=== PATIENT | male | born 1950 | race Caucasian/White ===

== ENCOUNTER 2020-01-11 15:58 | Inpatient (IN) ==
[2020-01-11] MEDS ORDERED: Nitroglycerin 0.4 MG TAB.SUBL SL ONE (16:23)
[2020-01-11 16:34] LABS: Basophils % 0.6 %; Eosinophils # 0.2 K/mcL (0.0-0.6); Eosinophils % 3.6 %; Hematocrit 44.6 % (37.5-50.1); Hemoglobin 14.1 g/dL (12.9-16.9); INR 1.1; Immature Granulocytes % 0.4 % (0-4); Lymphocytes # 1.3 K/mcL (0.6-4.6); Lymphocytes % 19.2 %; Mean Corpuscular HGB Conc 31.6 g/dL (31.6-35.5); Mean Corpuscular Volume 94.9 fL (83.0-100.0); Mean Platelet Volume 11.4 fL (9.4-12.4); Monocytes # 0.6 K/mcL (0.0-1.3); Monocytes % 8.8 %; Neutrophils # 4.5 K/mcL (1.6-8.9); Platelet Count 203 K/mcL (140-400); Prothrombin Time 12.5 Seconds (9.4-12.1); Red Cell Distribution Width 12.6 % (11.5-14.5); Segmented Neutrophils % 67.4 %; White Blood Count 6.7 K/mcL (4.3-11.1)
[2020-01-11 16:36] LABS: Activated Partial Thrombo Time 35.7 Seconds (26.0-36.0)
[2020-01-11 17:01] LABS: BUN/Creatinine Ratio 15 (6-26); Blood Urea Nitrogen 14 mg/dL (8-23); Calcium 9.5 mg/dL (8.6-10.3); Carbon Dioxide 25 mEq/L (23-29); Chloride 106 mEq/L (98-107); Glucose 164 mg/dL (70-105); Osmolality,Calculated 290 (280-300); Potassium 4.6 mEq/L (3.5-5.1); Sodium 138 mEq/L (136-145); Troponin I 1.55 ng/mL (< 0.04); eGFR For African Americans > 60 (> 60); eGFR For Non-African Americans > 60 (> 60)
[2020-01-11] MEDS ORDERED: *HR* Heparin 5,000 UNIT/ML VIAL IVP PRN ×2 (17:35)
[2020-01-11] MEDS ORDERED: *HR* Heparin 5,000 UNIT/ML VIAL IVP ONE (17:35)
[2020-01-11] MEDS ORDERED: Naloxone 0.4 MG/ML INJ IVP PRN (17:52)
[2020-01-11] MEDS ORDERED: *HR* HYDROcodone/Acet 5/325 mg TABLET PO PRN (17:52)
[2020-01-11] MEDS ORDERED: Nitroglycerin 0.4 MG TAB.SUBL SL PRN (17:54)
[2020-01-11] MEDS ORDERED: Perflutren Lipid Microsphere 1.3 ML in 0.9 % Sodium Chloride 8.7 ML IVP PRN (17:56)
[2020-01-11] MEDS ORDERED: *HR* Dextrose 50 % in Water (Vial) 50 ML VIAL IVP PRN (17:57)
[2020-01-11] MEDS ORDERED: D5% in Water 1,000 ML IVC PRN (17:57)
[2020-01-11] MEDS ORDERED: Dextrose Gel 15 GM/37.5 ML TUBE PO PRN ×2 (17:57)
[2020-01-11] MEDS ORDERED: Aspirin Enteric Coated 325 MG Tablet PO SCH (18:30)
[2020-01-11] MEDS: Heparin 25,000UNIT/250ML 1/2NS 25,000 UNIT/250 ML IV.SOLN IVC SCH (18:55)
[2020-01-11] MEDS: Furosemide 20 MG/2 ML VIAL IVP SCH (21:42)
[2020-01-11] MEDS: Metoprolol XL (24 HR) Succ 25 MG TAB.ER.24H PO SCH (21:42)
[2020-01-11] MEDS: Insulin DETEMIR 100 UNIT/ML X5UNITS SQ SCH (23:14)
[2020-01-12 01:32] LABS: Basophils # 0.1 K/mcL (0.0-0.2); Eosinophils # 0.3 K/mcL (0.0-0.6); Eosinophils % 4.9 %; Hematocrit 42.9 % (37.5-50.1); Hemoglobin 13.8 g/dL (12.9-16.9); Immature Granulocytes % 0.2 % (0-4); Lymphocytes # 1.7 K/mcL (0.6-4.6); Lymphocytes % 27.7 %; Mean Corpuscular HGB Conc 32.2 g/dL (31.6-35.5); Mean Corpuscular Hemoglobin 30.4 pg (28.0-33.3); Mean Corpuscular Volume 94.5 fL (83.0-100.0); Mean Platelet Volume 11.6 fL (9.4-12.4); Monocytes # 0.6 K/mcL (0.0-1.3); Monocytes % 10.5 %; Neutrophils # 3.4 K/mcL (1.6-8.9); Platelet Count 192 K/mcL (140-400); Red Blood Count 4.54 M/mcL (4.19-5.50); Red Cell Distribution Width 12.6 % (11.5-14.5); Segmented Neutrophils % 55.7 %; White Blood Count 6.1 K/mcL (4.3-11.1)
[2020-01-12 02:06] LABS: Alanine Aminotransferase 22 Units/L (7-52); Albumin 4.1 g/dL (3.5-5.7); Albumin/Globulin Ratio 1.7 (1.1-2.2); Alkaline Phosphatase 72 Units/L (34-104); Aspartate Amino Transferase 25 Units/L (13-39); BUN/Creatinine Ratio 14 (6-26); Bilirubin,Total 0.8 mg/dL (0.3-1.0); Blood Urea Nitrogen 14 mg/dL (8-23); Calcium 9.1 mg/dL (8.6-10.3); Carbon Dioxide 26 mEq/L (23-29); Chloride 104 mEq/L (98-107); Chol/HDL Ratio 4.1 (0-4.9); Cholesterol 147 mg/dL (< 200); Globulin 2.4 g/dL (2.4-3.5); Glucose 173 mg/dL (70-105); HDL Cholesterol 36 mg/dL (40-59); LDL Cholesterol,Calculated 83 mg/dL (< 100); Osmolality,Calculated 293 (280-300); Phosphorous 3.4 mg/dL (2.7-4.5); Potassium 3.8 mEq/L (3.5-5.1); Sodium 139 mEq/L (136-145); Total Protein 6.5 g/dL (6.4-8.9); Triglycerides 140 mg/dL (< 150); Troponin I 2.41 ng/mL (< 0.04); eGFR For African Americans > 60 (> 60); eGFR For Non-African Americans > 60 (> 60)
[2020-01-12 04:01] LABS: Estimated Average Glucose 169 mg/dl
[2020-01-12] MEDS: Insulin LISPRO 300 UNITS/3 ML VIAL SQ SCH ×3 (07:21→16:44)
[2020-01-12] MEDS: Furosemide 20 MG/2 ML VIAL IVP SCH ×2 (07:34→20:00)
[2020-01-12] MEDS: Aspirin Enteric Coated 81 MG Tablet PO SCH (07:34)
[2020-01-12] MEDS: Metoprolol XL (24 HR) Succ 25 MG TAB.ER.24H PO SCH (07:34)
[2020-01-12] MEDS ORDERED: Heparin 1,000 UNITS/500 mL 500 ML ONE (10:23)
[2020-01-12] MEDS ORDERED: *HR* Midazolam HCl 2 MG/2 ML VIAL ONE (10:23)
[2020-01-12] MEDS ORDERED: *HR* FentaNYL (PF) 100 MCG/2 ML VIAL ONE (10:23)
[2020-01-12] MEDS ORDERED: 0.9 % Sodium Chloride 1,000 ML ONE (10:23)
[2020-01-12] MEDS ORDERED: *HR* Heparin 10,000 UNIT/10 ML VIAL ONE (10:24)
[2020-01-12] MEDS ORDERED: Nitroglycerin 1,000 MCG/10 ML VIAL IV ONE (10:24)
[2020-01-12] MEDS ORDERED: ISOVUE-370 200 ML INFUS..BTL ONE (10:24)
[2020-01-12] MEDS: Chlorhexidine Rinse 15 ML MOUTHWASH MM SCH (20:00)
[2020-01-13] MEDS: Heparin 25,000UNIT/250ML 1/2NS 25,000 UNIT/250 ML IV.SOLN IVC SCH ×2 (00:05→09:31)
[2020-01-13] MEDS: Insulin DETEMIR 100 UNIT/ML X5UNITS SQ SCH ×2 (01:08→19:22)
[2020-01-13] MEDS ORDERED: Dextrose 50 % in Water (Vial) 30 ML, Sodium Bicarbonate 20 MEQ, Lidocaine 1% 5 ML, Insu... TH ONE ×3 (02:00)
[2020-01-13] MEDS ORDERED: Dextrose 50 % in Water (Vial) 30 ML, Sodium Bicarbonate 20 MEQ, Potassium Chloride 15 M... TH ONE (02:00)
[2020-01-13] MEDS ORDERED: Insulin Human Regular 100 UNIT in 0.9 % Sodium Chloride 100 ML IV PRN (02:00)
[2020-01-13] MEDS ORDERED: Heparin 15,000 UNIT in 0.9 % Sodium Chloride 500 ML IV ONE (02:00)
[2020-01-13] MEDS ORDERED: Norepinephrine 4 MG in 0.9 % Sodium Chloride 250 ML IVC PRN (02:00)
[2020-01-13 02:08] LABS: Basophils # 0.1 K/mcL (0.0-0.2); Basophils % 0.9 %; Eosinophils # 0.3 K/mcL (0.0-0.6); Eosinophils % 3.9 %; Hematocrit 42.8 % (37.5-50.1); Immature Granulocytes % 0.3 % (0-4); Lymphocytes # 1.4 K/mcL (0.6-4.6); Lymphocytes % 21.5 %; Mean Corpuscular HGB Conc 32.7 g/dL (31.6-35.5); Mean Corpuscular Volume 94.9 fL (83.0-100.0); Mean Platelet Volume 11.4 fL (9.4-12.4); Monocytes # 0.6 K/mcL (0.0-1.3); Neutrophils # 4.1 K/mcL (1.6-8.9); Platelet Count 179 K/mcL (140-400); Red Blood Count 4.51 M/mcL (4.19-5.50); Red Cell Distribution Width 12.3 % (11.5-14.5); Segmented Neutrophils % 63.4 %; White Blood Count 6.4 K/mcL (4.3-11.1)
[2020-01-13 02:24] LABS: BUN/Creatinine Ratio 18 (6-26); Blood Urea Nitrogen 18 mg/dL (8-23); Calcium 9.5 mg/dL (8.6-10.3); Carbon Dioxide 26 mEq/L (23-29); Chloride 102 mEq/L (98-107); Glucose 154 mg/dL (70-105); Osmolality,Calculated 293 (280-300); Potassium 3.8 mEq/L (3.5-5.1); Sodium 139 mEq/L (136-145); eGFR For African Americans > 60 (> 60); eGFR For Non-African Americans > 60 (> 60)
[2020-01-13] MEDS: Chlorhexidine Rinse 15 ML MOUTHWASH MM SCH ×2 (05:13→19:22)
[2020-01-13] MEDS: Metoprolol XL (24 HR) Succ 25 MG TAB.ER.24H PO SCH (05:13)
[2020-01-13] MEDS ORDERED: CeFAZolin Syr 2,000MG/20 ML 2,000 MG/20 ML SYRINGE IVPB ONE (06:00)
[2020-01-13] MEDS ORDERED: NiCARdipine 2.5 MG/10 ML Syringe IVPB ONE (06:38)
[2020-01-13] MEDS ORDERED: *HR* FentaNYL (PF) 1,000 MCG/20 ML VIAL ONE (06:45)
[2020-01-13] MEDS ORDERED: *HR* Midazolam HCl 5 MG/5 ML VIAL IVP ONE (06:45)
[2020-01-13] MEDS ORDERED: *HR* Rocuronium Bromide 50 MG/5 ML VIAL ONE ×2 (06:47→09:43)
[2020-01-13] MEDS ORDERED: *HR* PHENYLEPHRINE 1,000 MCG/10 ML SYRINGE IVP ONE (06:47)
[2020-01-13] MEDS ORDERED: Tranexamic Acid 1,000 MG/10 ML VIAL ONE ×2 (06:48→08:51)
[2020-01-13] MEDS ORDERED: Calcium Gluconate 1,000 MG/10 ML VIAL ONE (06:48)
[2020-01-13] MEDS ORDERED: Protamine Sulfate 250 MG/25 ML VIAL IVP ONE (06:48)
[2020-01-13] MEDS ORDERED: *HR* Etomidate 20 MG/10 ML AMPUL IVP ONE (06:50)
[2020-01-13] MEDS ORDERED: Famotidine 20 MG/2 ML VIAL ONE (06:50)
[2020-01-13] MEDS: Insulin LISPRO 300 UNITS/3 ML VIAL SQ SCH ×3 (07:04→13:50)
[2020-01-13] MEDS: Furosemide 20 MG/2 ML VIAL IVP SCH ×2 (07:05→19:24)
[2020-01-13] MEDS: Aspirin Enteric Coated 81 MG Tablet PO SCH (07:05)
[2020-01-13 08:22] LABS: ABG Base Excess 1 mEq/L (-2 to 3); ABG Chloride 101 mEq/L (98-107); ABG Glucose 189 mg/dL (60-95); ABG HCO3 27 mEq/L (21-27); ABG Ionized Calcium 1.14 mmol/L (1.15-1.35); ABG Oxygen Saturation 100 % (95-98); ABG PCO2 43 mmHg (35-45); ABG PO2 198 mmHg (85-104); ABG TCO2 28 mEq/L (20-26)
[2020-01-13] MEDS ORDERED: Albumin Human 5% 50.0 GM/1,000 ML IV.SOLN ONE (08:48)
[2020-01-13 09:16] LABS: ABG Base Excess 0 mEq/L (-2 to 3); ABG Chloride 102 mEq/L (98-107); ABG Glucose 209 mg/dL (60-95); ABG HCO3 25 mEq/L (21-27); ABG Ionized Calcium 1.11 mmol/L (1.15-1.35); ABG Oxygen Saturation 97 % (95-98); ABG PCO2 42 mmHg (35-45); ABG PH 7.38 pH Units (7.32-7.45); ABG PO2 91 mmHg (85-104); ABG TCO2 26 mEq/L (20-26)
[2020-01-13] MEDS ORDERED: Amiodarone Premix 360 MG/200 ML BAG IVC ONE ×2 (09:23→11:33)
[2020-01-13] MEDS ORDERED: *HR* Amiodarone 150 MG/3 ML VIAL IVPB ONE (09:23)
[2020-01-13 10:09] LABS: ABG Base Excess 1 mEq/L (-2 to 3); ABG Chloride 98 mEq/L (98-107); ABG Glucose 243 mg/dL (60-95); ABG HCO3 25 mEq/L (21-27); ABG Ionized Calcium 1.07 mmol/L (1.15-1.35); ABG Oxygen Saturation 100 % (95-98); ABG PCO2 37 mmHg (35-45); ABG PH 7.44 pH Units (7.32-7.45); ABG PO2 395 mmHg (85-104); ABG TCO2 26 mEq/L (20-26)
[2020-01-13 10:34] LABS: ABG Base Excess 1 mEq/L (-2 to 3); ABG Chloride 98 mEq/L (98-107); ABG Glucose 198 mg/dL (60-95); ABG HCO3 25 mEq/L (21-27); ABG Ionized Calcium 1.08 mmol/L (1.15-1.35); ABG Oxygen Saturation 100 % (95-98); ABG PCO2 36 mmHg (35-45); ABG PH 7.46 pH Units (7.32-7.45); ABG PO2 331 mmHg (85-104); ABG TCO2 26 mEq/L (20-26)
[2020-01-13 11:05] LABS: ABG Base Excess 1 mEq/L (-2 to 3); ABG Chloride 96 mEq/L (98-107); ABG Glucose 154 mg/dL (60-95); ABG HCO3 26 mEq/L (21-27); ABG Ionized Calcium 1.24 mmol/L (1.15-1.35); ABG Oxygen Saturation 100 % (95-98); ABG PCO2 38 mmHg (35-45); ABG PH 7.43 pH Units (7.32-7.45); ABG PO2 532 mmHg (85-104); ABG TCO2 27 mEq/L (20-26)
[2020-01-13] MEDS ORDERED: Acetaminophen 650 MG RECTAL SUPP RC PRN (11:33)
[2020-01-13] MEDS ORDERED: Calcium Gluconate 1gm/50mL 1 GM/50 ML BAG IVPB PRN (11:33)
[2020-01-13] MEDS ORDERED: Potassium Chloride 40 MEQ/200 ML BAG IVPB PRN (11:33)
[2020-01-13] MEDS ORDERED: Ondansetron 4 MG/2 ML VIAL IVP PRN (11:33)
[2020-01-13] MEDS ORDERED: Sennosides 8.6 MG TABLET PO PRN (11:33)
[2020-01-13] MEDS ORDERED: Acetaminophen 325 MG TABLET PO PRN (11:33)
[2020-01-13] MEDS ORDERED: Insulin Regular, Human 100 UNIT/ML IV PRN (11:33)
[2020-01-13] MEDS ORDERED: *HR* Dextrose 50 % in Water (Vial) 50 ML VIAL IVP PRN (11:33)
[2020-01-13 11:36] LABS: ABG Base Excess 0 mEq/L (-2 to 3); ABG Chloride 97 mEq/L (98-107); ABG Glucose 141 mg/dL (60-95); ABG HCO3 25 mEq/L (21-27); ABG Ionized Calcium 1.39 mmol/L (1.15-1.35); ABG Oxygen Saturation 98 % (95-98); ABG PCO2 42 mmHg (35-45); ABG PH 7.39 pH Units (7.32-7.45); ABG PO2 105 mmHg (85-104); ABG TCO2 27 mEq/L (20-26)
[2020-01-13] MEDS ORDERED: Norepinephrine 4 MG/254 ML IV.SOLN IVC SCH (11:45)
[2020-01-13 12:32] LABS: ABG Base Excess 0 mEq/L (-2 to 3); ABG HCO3 25 mEq/L (21-27); ABG Oxygen Saturation 99 % (95-98); ABG PCO2 43 mmHg (35-45); ABG PH 7.38 pH Units (7.32-7.45); ABG PO2 119 mmHg (85-104); ABG TCO2 27 mEq/L (20-26); Blood Gas Modality AF; Blood Gas VT 650 cc
[2020-01-13 12:34] LABS: Basophils # 0.1 K/mcL (0.0-0.2); Basophils % 0.4 %; Eosinophils # 0.2 K/mcL (0.0-0.6); Eosinophils % 1.2 %; Hematocrit 36.1 % (37.5-50.1); Immature Granulocytes % 0.8 % (0-4); Lymphocytes # 1.2 K/mcL (0.6-4.6); Lymphocytes % 8.5 %; Mean Corpuscular HGB Conc 33.2 g/dL (31.6-35.5); Mean Corpuscular Hemoglobin 31.1 pg (28.0-33.3); Mean Corpuscular Volume 93.5 fL (83.0-100.0); Mean Platelet Volume 10.9 fL (9.4-12.4); Monocytes % 8.6 %; Neutrophils # 11.7 K/mcL (1.6-8.9); Platelet Count 135 K/mcL (140-400); Red Blood Count 3.86 M/mcL (4.19-5.50); Red Cell Distribution Width 12.5 % (11.5-14.5); Segmented Neutrophils % 80.5 %
[2020-01-13 12:37] LABS: Monocytes # 1.3 K/mcL (0.0-1.3); White Blood Count 14.5 K/mcL (4.3-11.1)
[2020-01-13 12:42] LABS: INR 1.4; Prothrombin Time 15.6 Seconds (9.4-12.1)
[2020-01-13 12:44] LABS: Activated Partial Thrombo Time 32.6 Seconds (26.0-36.0)
[2020-01-13] MEDS: 0.9 % Sodium Chloride w KCl 20 MEQ/1,000 ML MLS IVC SCH (12:49)
[2020-01-13] MEDS: Metoclopramide 10 MG/2 ML VIAL IVP SCH ×2 (12:49→15:08)
[2020-01-13 12:50] LABS: BUN/Creatinine Ratio 16 (6-26); Blood Urea Nitrogen 16 mg/dL (8-23); Calcium 9.3 mg/dL (8.6-10.3); Carbon Dioxide 26 mEq/L (23-29); Chloride 104 mEq/L (98-107); Glucose 126 mg/dL (70-105); Osmolality,Calculated 287 (280-300); Potassium 4.1 mEq/L (3.5-5.1); Sodium 137 mEq/L (136-145); eGFR For African Americans > 60 (> 60); eGFR For Non-African Americans > 60 (> 60)
[2020-01-13] MEDS: Albumin Human 5% 12.5 GM/250 ML IV.SOLN IVPB PRN ×2 (12:51→13:45)
[2020-01-13] MEDS: Amiodarone Premix 360 MG/200 ML BAG IVC SCH ×2 (12:52→17:47)
[2020-01-13] MEDS: niCARdipine 20 MG/200 ML MLS IVC SCH ×4 (12:53→22:09)
[2020-01-13] MEDS: Insulin Human Regular 100 UNIT in 0.9 % Sodium Chloride 100 ML IVC SCH ×2 (13:20→14:15)
[2020-01-13] MEDS: Pantoprazole 40 MG VIAL IVP SCH (13:40)
[2020-01-13] MEDS: *HR* FentaNYL (PF) 100 MCG/2 ML VIAL IVP PRN ×3 (13:40→20:35)
[2020-01-13] MEDS ORDERED: Tranexamic Acid 1,000 MG/10 ML VIAL IR ONE (14:12)
[2020-01-13] MEDS ORDERED: Lidocaine 2% Syringe 100 MG/5 ML IVP ONE (14:12)
[2020-01-13] MEDS ORDERED: *HR* Heparin 10,000 UNIT/10 ML VIAL IR ONE (14:12)
[2020-01-13] MEDS ORDERED: *HR* Phenylephrine 10 MG/ML VIAL IVC ONE (14:12)
[2020-01-13] MEDS ORDERED: *HR* Magnesium Sulfate 2 GM/50 ML PIGGYBACK IVPB ONE (14:12)
[2020-01-13] MEDS ORDERED: Albumin Human 25% 25 GM/100 ML IV.SOLN IVPB ONE (14:12)
[2020-01-13] MEDS: CeFAZolin 2 GM/120 ML BAG IVPB SCH (15:02)
[2020-01-13 17:07] LABS: ABG Base Excess 2 mEq/L (-2 to 3); ABG HCO3 28 mEq/L (21-27); ABG Oxygen Saturation 95 % (95-98); ABG PCO2 47 mmHg (35-45); ABG PH 7.38 pH Units (7.32-7.45); ABG PO2 76 mmHg (85-104); ABG TCO2 29 mEq/L (20-26); Blood Gas Modality CPAP/PS; Blood Gas Pressure Support 5 cm H2O
[2020-01-13 18:17] LABS: ABG Base Excess 1 mEq/L (-2 to 3); ABG HCO3 27 mEq/L (21-27); ABG Oxygen Saturation 95 % (95-98); ABG PCO2 47 mmHg (35-45); ABG PH 7.37 pH Units (7.32-7.45); ABG PO2 80 mmHg (85-104); ABG TCO2 29 mEq/L (20-26)
[2020-01-13] MEDS ORDERED: Furosemide 20 MG/2 ML VIAL IVP SCH (21:00)
[2020-01-14] MEDS: Metoclopramide 10 MG/2 ML VIAL IVP SCH ×5 (00:17→23:24)
[2020-01-14] MEDS: CeFAZolin 2 GM/120 ML BAG IVPB SCH (00:17)
[2020-01-14] MEDS: *HR* FentaNYL (PF) 100 MCG/2 ML VIAL IVP PRN (00:18)
[2020-01-14] MEDS: *HR* OxyCODONE/APAP 5/325 TABLET PO PRN ×4 (02:13→18:32)
[2020-01-14 04:40] LABS: Eosinophils % 0.2 %; Hemoglobin 11.3 g/dL (12.9-16.9); Monocytes % 10.4 %; Red Cell Distribution Width 12.6 % (11.5-14.5)
[2020-01-14 04:42] LABS: Basophils % 0.4 %; Hematocrit 35.4 % (37.5-50.1); Immature Granulocytes % 0.3 % (0-4); Immature Platelets 6.2 % (1.1-6.1); Lymphocytes # 1.3 K/mcL (0.6-4.6); Lymphocytes % 13.9 %; Mean Corpuscular HGB Conc 31.9 g/dL (31.6-35.5); Mean Corpuscular Volume 93.9 fL (83.0-100.0); Mean Platelet Volume 11.6 fL (9.4-12.4); Neutrophils # 6.9 K/mcL (1.6-8.9); Platelet Count 121 K/mcL (140-400); Red Blood Count 3.77 M/mcL (4.19-5.50); Segmented Neutrophils % 74.8 %; White Blood Count 9.2 K/mcL (4.3-11.1)
[2020-01-14 04:46] LABS: INR 1.3; Prothrombin Time 14.6 Seconds (9.4-12.1)
[2020-01-14 04:49] LABS: Activated Partial Thrombo Time 27.7 Seconds (26.0-36.0)
[2020-01-14 05:02] LABS: BUN/Creatinine Ratio 15 (6-26); Blood Urea Nitrogen 14 mg/dL (8-23); Calcium 8.5 mg/dL (8.6-10.3); Carbon Dioxide 24 mEq/L (23-29); Chloride 106 mEq/L (98-107); Glucose 116 mg/dL (70-105); Magnesium 1.9 mg/dL (1.6-2.6); Osmolality,Calculated 289 (280-300); Potassium 4.1 mEq/L (3.5-5.1); Sodium 139 mEq/L (136-145); eGFR For African Americans > 60 (> 60); eGFR For Non-African Americans > 60 (> 60)
[2020-01-14] MEDS: niCARdipine 20 MG/200 ML MLS IVC SCH (05:41)
[2020-01-14] MEDS: Amiodarone Premix 360 MG/200 ML BAG IVC SCH (06:10)
[2020-01-14] MEDS: Pantoprazole 40 MG VIAL IVP SCH (08:56)
[2020-01-14] MEDS: Metoprolol XL (24 HR) Succ 25 MG TAB.ER.24H PO SCH (08:56)
[2020-01-14] MEDS: Furosemide 20 MG/2 ML VIAL IVP SCH ×2 (08:56→16:02)
[2020-01-14] MEDS: Chlorhexidine Rinse 15 ML MOUTHWASH MM SCH ×2 (08:57→20:29)
[2020-01-14] MEDS: 0.9 % Sodium Chloride w KCl 20 MEQ/1,000 ML MLS IVC SCH (08:57)
[2020-01-14] MEDS ORDERED: Aspirin Enteric Coated 81 MG Tablet PO SCH (09:00)
[2020-01-14] MEDS ORDERED: *HR* Amiodarone 200 MG TABLET PO SCH (09:00)
[2020-01-14] MEDS ORDERED: *HR* Dextrose 50 % in Water (Vial) 50 ML VIAL IVP PRN ×3 (12:49)
[2020-01-14] MEDS ORDERED: D5% in Water 1,000 ML IVC PRN (12:49)
[2020-01-14] MEDS ORDERED: Dextrose Gel 15 GM/37.5 ML TUBE PO PRN ×4 (12:49)
[2020-01-14] MEDS ORDERED: Insulin Regular, Human 100 UNIT/ML IV PRN (12:49)
[2020-01-14] MEDS ORDERED: Ondansetron 4 MG/2 ML VIAL IVP PRN (12:49)
[2020-01-14] MEDS ORDERED: Naloxone 0.4 MG/ML INJ IVP PRN (12:49)
[2020-01-14] MEDS ORDERED: Nitroglycerin 0.4 MG TAB.SUBL SL PRN (12:49)
[2020-01-14] MEDS ORDERED: Acetaminophen 325 MG TABLET PO PRN (12:49)
[2020-01-14] MEDS ORDERED: Insulin Human Regular 100 UNIT in 0.9 % Sodium Chloride 100 ML IVC SCH (12:49)
[2020-01-14] MEDS ORDERED: Sennosides 8.6 MG TABLET PO PRN (12:49)
[2020-01-14] MEDS: *HR* Heparin 5,000 UNIT/ML VIAL SQ SCH ×2 (16:01→18:26)
[2020-01-14] MEDS: *HR* Glimepiride 4 MG TABLET PO SCH (16:01)
[2020-01-14] MEDS: Insulin DETEMIR 100 UNIT/ML X5UNITS SQ SCH (20:27)
[2020-01-15] MEDS: *HR* OxyCODONE/APAP 5/325 TABLET PO PRN ×4 (01:35→23:23)
[2020-01-15 04:51] LABS: Basophils % 0.5 %; Eosinophils # 0.1 K/mcL (0.0-0.6); Eosinophils % 1.1 %; Hematocrit 31.5 % (37.5-50.1); Hemoglobin 10.1 g/dL (12.9-16.9); Immature Granulocytes % 0.5 % (0-4); Lymphocytes # 1.2 K/mcL (0.6-4.6); Lymphocytes % 15.3 %; Mean Corpuscular HGB Conc 32.1 g/dL (31.6-35.5); Mean Corpuscular Hemoglobin 30.1 pg (28.0-33.3); Mean Platelet Volume 11.6 fL (9.4-12.4); Monocytes # 1.1 K/mcL (0.0-1.3); Monocytes % 13.2 %; Neutrophils # 5.6 K/mcL (1.6-8.9); Platelet Count 111 K/mcL (140-400); Red Blood Count 3.35 M/mcL (4.19-5.50); Red Cell Distribution Width 12.8 % (11.5-14.5); Segmented Neutrophils % 69.4 %; White Blood Count 8.1 K/mcL (4.3-11.1)
[2020-01-15 05:06] LABS: BUN/Creatinine Ratio 17 (6-26); Blood Urea Nitrogen 15 mg/dL (8-23); Calcium 8.3 mg/dL (8.6-10.3); Carbon Dioxide 24 mEq/L (23-29); Chloride 101 mEq/L (98-107); Glucose 141 mg/dL (70-105); Osmolality,Calculated 281 (280-300); Sodium 134 mEq/L (136-145); eGFR For African Americans > 60 (> 60); eGFR For Non-African Americans > 60 (> 60)
[2020-01-15] MEDS: Metoclopramide 10 MG/2 ML VIAL IVP SCH ×4 (06:38→23:15)
[2020-01-15] MEDS: *HR* Heparin 5,000 UNIT/ML VIAL SQ SCH ×2 (06:38→17:25)
[2020-01-15] MEDS: Aspirin Enteric Coated 81 MG Tablet PO SCH (08:29)
[2020-01-15] MEDS: lisinopriL 10 MG TABLET PO SCH (08:30)
[2020-01-15] MEDS: *HR* Glimepiride 4 MG TABLET PO SCH (08:30)
[2020-01-15] MEDS: Chlorhexidine Rinse 15 ML MOUTHWASH MM SCH ×2 (08:31→20:28)
[2020-01-15] MEDS: Furosemide 20 MG/2 ML VIAL IVP SCH ×2 (08:31→17:25)
[2020-01-15] MEDS: Pantoprazole 40 MG VIAL IVP SCH (08:31)
[2020-01-15] MEDS: Insulin DETEMIR 100 UNIT/ML X5UNITS SQ SCH (20:29)
[2020-01-16 01:26] LABS: Basophils % 0.4 %; Eosinophils # 0.2 K/mcL (0.0-0.6); Hematocrit 29.8 % (37.5-50.1); Hemoglobin 9.7 g/dL (12.9-16.9); Immature Granulocytes % 0.3 % (0-4); Lymphocytes # 1.1 K/mcL (0.6-4.6); Lymphocytes % 14.4 %; Mean Corpuscular HGB Conc 32.6 g/dL (31.6-35.5); Mean Corpuscular Hemoglobin 30.4 pg (28.0-33.3); Mean Corpuscular Volume 93.4 fL (83.0-100.0); Mean Platelet Volume 11.6 fL (9.4-12.4); Monocytes # 1.2 K/mcL (0.0-1.3); Monocytes % 15.1 %; Neutrophils # 5.1 K/mcL (1.6-8.9); Platelet Count 121 K/mcL (140-400); Red Blood Count 3.19 M/mcL (4.19-5.50); Red Cell Distribution Width 12.6 % (11.5-14.5); Segmented Neutrophils % 66.8 %; White Blood Count 7.6 K/mcL (4.3-11.1)
[2020-01-16 01:39] LABS: BUN/Creatinine Ratio 14 (6-26); Blood Urea Nitrogen 18 mg/dL (8-23); Calcium 8.1 mg/dL (8.6-10.3); Carbon Dioxide 24 mEq/L (23-29); Chloride 97 mEq/L (98-107); Glucose 135 mg/dL (70-105); Magnesium 1.8 mg/dL (1.6-2.6); Osmolality,Calculated 276 (280-300); Potassium 3.6 mEq/L (3.5-5.1); Sodium 131 mEq/L (136-145); eGFR For African Americans > 60 (> 60); eGFR For Non-African Americans 57 (> 60)
[2020-01-16] MEDS: Metoclopramide 10 MG/2 ML VIAL IVP SCH ×2 (05:33→11:40)
[2020-01-16] MEDS: *HR* Heparin 5,000 UNIT/ML VIAL SQ SCH ×2 (05:33→17:24)
[2020-01-16] MEDS: *HR* Glimepiride 4 MG TABLET PO SCH (08:11)
[2020-01-16] MEDS: Metoprolol XL (24 HR) Succ 25 MG TAB.ER.24H PO SCH (08:12)
[2020-01-16] MEDS: Chlorhexidine Rinse 15 ML MOUTHWASH MM SCH ×2 (08:13→20:49)
[2020-01-16] MEDS: Pantoprazole 40 MG VIAL IVP SCH (08:13)
[2020-01-16] MEDS: Aspirin Enteric Coated 81 MG Tablet PO SCH (08:13)
[2020-01-16] MEDS: Furosemide 20 MG/2 ML VIAL IVP SCH (08:13)
[2020-01-16] MEDS: lisinopriL 10 MG TABLET PO SCH (08:14)
[2020-01-16] MEDS: polyethylene glycoL 3350 17 GM POWD.PACK PO SCH (11:41)
[2020-01-16] MEDS: 0.9 % Sodium Chloride 1,000 ML IVC SCH (19:07)
[2020-01-16] MEDS: Sennosides/Docusate Sodium TABLET PO SCH (20:50)
[2020-01-16] MEDS: Insulin DETEMIR 100 UNIT/ML X5UNITS SQ SCH (20:51)
[2020-01-17] MEDS: *HR* Heparin 5,000 UNIT/ML VIAL SQ SCH ×2 (04:53→18:46)
[2020-01-17 05:21] LABS: Basophils % 0.6 %; Eosinophils # 0.3 K/mcL (0.0-0.6); Eosinophils % 5.4 %; Hematocrit 30.2 % (37.5-50.1); Hemoglobin 9.9 g/dL (12.9-16.9); Immature Granulocytes % 0.6 % (0-4); Lymphocytes # 0.9 K/mcL (0.6-4.6); Lymphocytes % 16.5 %; Mean Corpuscular HGB Conc 32.8 g/dL (31.6-35.5); Mean Corpuscular Hemoglobin 31.2 pg (28.0-33.3); Mean Corpuscular Volume 95.3 fL (83.0-100.0); Mean Platelet Volume 11.4 fL (9.4-12.4); Monocytes # 0.7 K/mcL (0.0-1.3); Monocytes % 14.1 %; Neutrophils # 3.2 K/mcL (1.6-8.9); Platelet Count 166 K/mcL (140-400); Red Blood Count 3.17 M/mcL (4.19-5.50); Red Cell Distribution Width 12.6 % (11.5-14.5); Segmented Neutrophils % 62.8 %; White Blood Count 5.2 K/mcL (4.3-11.1)
[2020-01-17 05:33] LABS: BUN/Creatinine Ratio 15 (6-26); Blood Urea Nitrogen 14 mg/dL (8-23); Calcium 8.5 mg/dL (8.6-10.3); Carbon Dioxide 25 mEq/L (23-29); Chloride 101 mEq/L (98-107); Glucose 122 mg/dL (70-105); Magnesium 2.2 mg/dL (1.6-2.6); Osmolality,Calculated 280 (280-300); Potassium 4.2 mEq/L (3.5-5.1); Sodium 134 mEq/L (136-145); eGFR For African Americans > 60 (> 60); eGFR For Non-African Americans > 60 (> 60)
[2020-01-17 05:34] LABS: % Iron Saturation 11 % (20-55); Iron 25 mcg/dL (65-175); Transferrin 161 mg/dL (203-362)
[2020-01-17 05:52] LABS: Ferritin 662 ng/mL (20-250)
[2020-01-17 05:57] LABS: Folate 16.1 ng/mL (3.0-16.0)
[2020-01-17] MEDS ORDERED: Cyanocobalamin (B-12) 1,000 MCG/ML VIAL SQ ONE (08:13)
[2020-01-17] MEDS ORDERED: Cyanocobalamin (B-12) 1,000 MCG TABLET PO SCH (09:00)
[2020-01-17] MEDS: Aspirin Enteric Coated 81 MG Tablet PO SCH (09:00)
[2020-01-17] MEDS: Metoprolol XL (24 HR) Succ 25 MG TAB.ER.24H PO SCH (09:01)
[2020-01-17] MEDS: *HR* Glimepiride 4 MG TABLET PO SCH (09:01)
[2020-01-17] MEDS: Sennosides/Docusate Sodium TABLET PO SCH ×2 (09:02→20:39)
[2020-01-17] MEDS: polyethylene glycoL 3350 17 GM POWD.PACK PO SCH (09:03)
[2020-01-17] MEDS: Chlorhexidine Rinse 15 ML MOUTHWASH MM SCH (09:03)
[2020-01-17] MEDS: lisinopriL 10 MG TABLET PO SCH (09:04)
[2020-01-17] MEDS: 0.9 % Sodium Chloride 1,000 ML IVC SCH (18:44)
[2020-01-17] MEDS: Insulin DETEMIR 100 UNIT/ML X5UNITS SQ SCH (20:39)
[2020-01-18] MEDS: *HR* Heparin 5,000 UNIT/ML VIAL SQ SCH ×2 (05:19→17:16)
[2020-01-18] MEDS: *HR* Glimepiride 4 MG TABLET PO SCH (07:34)
[2020-01-18] MEDS: Aspirin Enteric Coated 81 MG Tablet PO SCH (07:34)
[2020-01-18] MEDS: Sennosides/Docusate Sodium TABLET PO SCH ×2 (07:34→21:12)
[2020-01-18] MEDS: lisinopriL 10 MG TABLET PO SCH (07:34)
[2020-01-18 07:45] LABS: Basophils % 0.8 %; Eosinophils # 0.4 K/mcL (0.0-0.6); Eosinophils % 7.4 %; Hematocrit 31.9 % (37.5-50.1); Hemoglobin 10.2 g/dL (12.9-16.9); Immature Granulocytes % 0.4 % (0-4); Lymphocytes # 0.9 K/mcL (0.6-4.6); Lymphocytes % 16.8 %; Mean Corpuscular Hemoglobin 30.5 pg (28.0-33.3); Mean Corpuscular Volume 95.5 fL (83.0-100.0); Mean Platelet Volume 10.8 fL (9.4-12.4); Monocytes # 0.6 K/mcL (0.0-1.3); Monocytes % 11.8 %; Neutrophils # 3.3 K/mcL (1.6-8.9); Platelet Count 208 K/mcL (140-400); Red Blood Count 3.34 M/mcL (4.19-5.50); Red Cell Distribution Width 12.6 % (11.5-14.5); Segmented Neutrophils % 62.8 %; White Blood Count 5.2 K/mcL (4.3-11.1)
[2020-01-18 08:03] LABS: BUN/Creatinine Ratio 20 (6-26); Blood Urea Nitrogen 15 mg/dL (8-23); Calcium 8.9 mg/dL (8.6-10.3); Carbon Dioxide 25 mEq/L (23-29); Chloride 105 mEq/L (98-107); Glucose 82 mg/dL (70-105); Magnesium 2.3 mg/dL (1.6-2.6); Osmolality,Calculated 288 (280-300); Potassium 3.9 mEq/L (3.5-5.1); Sodium 139 mEq/L (136-145); eGFR For African Americans > 60 (> 60); eGFR For Non-African Americans > 60 (> 60)
[2020-01-18] MEDS ORDERED: *HR* Dextrose 50 % in Water (Vial) 50 ML VIAL IVP PRN (12:34)
[2020-01-18] MEDS ORDERED: D5% in Water 1,000 ML IVC PRN (12:34)
[2020-01-18] MEDS ORDERED: Dextrose Gel 15 GM/37.5 ML TUBE PO PRN ×2 (12:34)
[2020-01-18] MEDS: polyethylene glycoL 3350 17 GM POWD.PACK PO SCH (15:34)
[2020-01-18] MEDS: Insulin LISPRO 300 UNITS/3 ML VIAL SQ SCH ×2 (17:11→21:12)
[2020-01-18] MEDS: Insulin DETEMIR 100 UNIT/ML X5UNITS SQ SCH (21:12)
[2020-01-19] MEDS ORDERED: *HR* Adenosine 6 MG/2 ML VIAL IVP ONE (04:37)
[2020-01-19 05:56] LABS: Basophils # 0.1 K/mcL (0.0-0.2); Basophils % 0.9 %; Eosinophils # 0.4 K/mcL (0.0-0.6); Eosinophils % 6.6 %; Hematocrit 33.2 % (37.5-50.1); Hemoglobin 10.7 g/dL (12.9-16.9); Immature Granulocytes % 0.5 % (0-4); Lymphocytes # 1.1 K/mcL (0.6-4.6); Mean Corpuscular HGB Conc 32.2 g/dL (31.6-35.5); Mean Corpuscular Hemoglobin 30.1 pg (28.0-33.3); Mean Corpuscular Volume 93.3 fL (83.0-100.0); Mean Platelet Volume 10.8 fL (9.4-12.4); Monocytes # 0.7 K/mcL (0.0-1.3); Monocytes % 11.9 %; Neutrophils # 3.7 K/mcL (1.6-8.9); Platelet Count 243 K/mcL (140-400); Red Blood Count 3.56 M/mcL (4.19-5.50); Red Cell Distribution Width 12.4 % (11.5-14.5); Segmented Neutrophils % 62.1 %; White Blood Count 5.9 K/mcL (4.3-11.1)
[2020-01-19] MEDS: *HR* Heparin 5,000 UNIT/ML VIAL SQ SCH ×2 (06:10→16:46)
[2020-01-19 06:31] LABS: BUN/Creatinine Ratio 19 (6-26); Blood Urea Nitrogen 15 mg/dL (8-23); Calcium 9.1 mg/dL (8.6-10.3); Carbon Dioxide 26 mEq/L (23-29); Chloride 103 mEq/L (98-107); Glucose 134 mg/dL (70-105); Magnesium 1.9 mg/dL (1.6-2.6); Osmolality,Calculated 289 (280-300); Potassium 3.8 mEq/L (3.5-5.1); Sodium 138 mEq/L (136-145); eGFR For African Americans > 60 (> 60); eGFR For Non-African Americans > 60 (> 60)
[2020-01-19] MEDS: Aspirin Enteric Coated 81 MG Tablet PO SCH (08:13)
[2020-01-19] MEDS: Insulin LISPRO 300 UNITS/3 ML VIAL SQ SCH ×4 (08:13→19:26)
[2020-01-19] MEDS: lisinopriL 10 MG TABLET PO SCH (08:13)
[2020-01-19] MEDS: polyethylene glycoL 3350 17 GM POWD.PACK PO SCH (08:13)
[2020-01-19] MEDS: amLODIPine 5 MG TABLET PO SCH (11:15)
[2020-01-19] MEDS: Insulin DETEMIR 100 UNIT/ML X5UNITS SQ SCH (21:05)
[2020-01-20] MEDS: *HR* Heparin 5,000 UNIT/ML VIAL SQ SCH (06:07)
[2020-01-20 06:11] LABS: Basophils # 0.1 K/mcL (0.0-0.2); Basophils % 1.1 %; Eosinophils # 0.4 K/mcL (0.0-0.6); Eosinophils % 6.3 %; Hematocrit 31.8 % (37.5-50.1); Hemoglobin 10.7 g/dL (12.9-16.9); Immature Granulocytes % 0.6 % (0-4); Lymphocytes # 1.3 K/mcL (0.6-4.6); Lymphocytes % 20.8 %; Mean Corpuscular HGB Conc 33.6 g/dL (31.6-35.5); Mean Corpuscular Hemoglobin 32.1 pg (28.0-33.3); Mean Corpuscular Volume 95.5 fL (83.0-100.0); Mean Platelet Volume 10.8 fL (9.4-12.4); Monocytes # 0.8 K/mcL (0.0-1.3); Monocytes % 12.1 %; Neutrophils # 3.8 K/mcL (1.6-8.9); Platelet Count 291 K/mcL (140-400); Red Blood Count 3.33 M/mcL (4.19-5.50); Red Cell Distribution Width 12.6 % (11.5-14.5); Segmented Neutrophils % 59.1 %; White Blood Count 6.4 K/mcL (4.3-11.1)
[2020-01-20 06:32] LABS: BUN/Creatinine Ratio 17 (6-26); Blood Urea Nitrogen 16 mg/dL (8-23); Carbon Dioxide 26 mEq/L (23-29); Chloride 101 mEq/L (98-107); Glucose 212 mg/dL (70-105); Magnesium 1.8 mg/dL (1.6-2.6); Osmolality,Calculated 287 (280-300); Potassium 3.9 mEq/L (3.5-5.1); Sodium 135 mEq/L (136-145); eGFR For African Americans > 60 (> 60); eGFR For Non-African Americans > 60 (> 60)
[2020-01-20] MEDS: amLODIPine 5 MG TABLET PO SCH (08:06)
[2020-01-20] MEDS: Insulin LISPRO 300 UNITS/3 ML VIAL SQ SCH ×2 (08:06→12:06)
[2020-01-20] MEDS: Aspirin Enteric Coated 81 MG Tablet PO SCH (08:06)
[2020-01-20] MEDS: polyethylene glycoL 3350 17 GM POWD.PACK PO SCH (08:06)
[2020-01-20] MEDS: lisinopriL 10 MG TABLET PO SCH (08:06)
[2020-01-20 12:28] LABS: Adenovirus Not Detected (Not Detect); Coronavirus 229E Not Detected (Not Detect); Coronavirus HKU1 Not Detected (Not Detect); Coronavirus NL63 Not Detected (Not Detect); Coronavirus OC43 Not Detected (Not Detect); Human Metapneumovirus Not Detected (Not Detect); Human Rhinovirus/Enterovirus Not Detected (Not Detect); Influenza A Subtype 2009 H1 Not Detected (Not Detect); Influenza B Not Detected (Not Detect); Parainfluenza Virus 1 Not Detected (Not Detect); SARS-CoV-2 Not Detected (Not Detect)
[2020-01-20 12:29] LABS: Bordetella Pertussis Not Detected (Not Detect); Chlamydophila pneumoniae Not Detected (Not Detect); Mycoplasma pneumoniae Not Detected (Not Detect); Parainfluenza Virus 2 Not Detected (Not Detect); Parainfluenza Virus 3 Not Detected (Not Detect); Parainfluenza Virus 4 Not Detected (Not Detect); Respiratory Syncytial Virus Not Detected (Not Detect)
[2020-01-20] MEDS ORDERED: FLU Vac QV 20-21 (6Month+)/PF 0.5 ML SYRINGE IM ONE (14:01)
[2020-01-20 15:16] VITALS: BP 110/62
== END 2020-01-20 16:03 | DRG 233 ==
LOC: 2ANU 15:58 → EMEROOARM 15:58 → SUATTDRO 18:49 → 2ANU 19:35 → SUATTDRO 01-12 12:44 → ICNU 01-12 19:43 → 2NNU 01-14 17:36
PROVIDERS: ADMIT Internal Medicine; ATTEND Thoracic Surgery (Cardiothoracic Vascular Surgery)

== ENCOUNTER 2020-05-30 10:44 | Inpatient (IN) ==
[2020-05-30] MEDS ORDERED: 0.9 % Sodium Chloride 500 ML IVC ONE ×2 (11:10→15:43)
[2020-05-30 11:24] LABS: Basophils # 0.1 K/mcL (0.0-0.2); Basophils % 1.2 %; Eosinophils # 0.4 K/mcL (0.0-0.6); Hematocrit 38.5 % (37.5-50.1); Hemoglobin 12.2 g/dL (12.9-16.9); Immature Granulocytes % 0.4 % (0-4); Lymphocytes # 1.6 K/mcL (0.6-4.6); Lymphocytes % 19.9 %; Mean Corpuscular HGB Conc 31.7 g/dL (31.6-35.5); Mean Corpuscular Hemoglobin 29.2 pg (28.0-33.3); Mean Corpuscular Volume 92.1 fL (83.0-100.0); Mean Platelet Volume 11.1 fL (9.4-12.4); Monocytes # 0.7 K/mcL (0.0-1.3); Monocytes % 8.4 %; Neutrophils # 5.3 K/mcL (1.6-8.9); Platelet Count 245 K/mcL (140-400); Red Blood Count 4.18 M/mcL (4.19-5.50); Red Cell Distribution Width 13.1 % (11.5-14.5); Segmented Neutrophils % 65.1 %; White Blood Count 8.2 K/mcL (4.3-11.1)
[2020-05-30 12:07] LABS: Alanine Aminotransferase 20 Units/L (7-52); Albumin 4.3 g/dL (3.5-5.7); Albumin/Globulin Ratio 1.7 (1.1-2.2); Alkaline Phosphatase 62 Units/L (34-104); Aspartate Amino Transferase 14 Units/L (13-39); BUN/Creatinine Ratio 16 (6-26); Bilirubin,Direct 0.2 mg/dL (0.0-0.2); Bilirubin,Indirect 0.7 mg/dL (0.0-1.0); Bilirubin,Total 0.9 mg/dL (0.3-1.0); Blood Urea Nitrogen 22 mg/dL (8-23); Calcium 9.7 mg/dL (8.6-10.3); Carbon Dioxide 24 mEq/L (23-29); Chloride 104 mEq/L (98-107); Globulin 2.6 g/dL (2.4-3.5); Glucose 271 mg/dL (70-105); Osmolality,Calculated 301 (280-300); Potassium 4.6 mEq/L (3.5-5.1); Sodium 139 mEq/L (136-145); Total Protein 6.9 g/dL (6.4-8.9); Troponin I < 0.03 ng/mL (< 0.04); eGFR For African Americans > 60 (> 60); eGFR For Non-African Americans 53 (> 60)
[2020-05-30 13:52] LABS: Bilirubin,Urine Negative (Negative); Blood,Urine Negative (Negative); Clarity,Urine Clear (Clear); Color,Urine Light-Yellow (Yellow); Glucose,Urine (UA) Normal (Normal); Ketones,Urine Negative (Negative); Leukocyte Esterase,Urine Negative (Negative); Nitrite,Urine Negative (Negative); PH,Urine 5.5 pH Units (5.0-8.0); Protein,Urine Trace mg/dL (Neg-Trace); Urobilinogen,Urine Normal (Normal)
[2020-05-30] MEDS ORDERED: Isovue-370 500 ML BOTTLE IVP ONE (14:24)
[2020-05-30] MEDS ORDERED: Naloxone 0.4 MG/ML INJ IVP PRN (16:45)
[2020-05-30] MEDS ORDERED: Ondansetron 4 MG/2 ML VIAL IVP PRN (16:45)
[2020-05-30] MEDS ORDERED: Acetaminophen 325 MG TABLET PO PRN (16:45)
[2020-05-30] MEDS ORDERED: D5% in Water 1,000 ML IVC PRN (16:49)
[2020-05-30] MEDS ORDERED: Dextrose Gel 15 GM/37.5 ML TUBE PO PRN ×2 (16:49)
[2020-05-30] MEDS ORDERED: *HR* Dextrose 50 % in Water (Vial) 50 ML VIAL IVP PRN (16:49)
[2020-05-30] MEDS ORDERED: Perflutren Lipid Microsphere 1.3 ML in 0.9 % Sodium Chloride 8.7 ML IVP PRN (17:02)
[2020-05-30] MEDS: Insulin LISPRO 300 UNITS/3 ML VIAL SUBQ SCH (21:10)
[2020-05-31 01:35] LABS: Basophils # 0.1 K/mcL (0.0-0.2); Eosinophils # 0.4 K/mcL (0.0-0.6); Eosinophils % 5.7 %; Hemoglobin 11.1 g/dL (12.9-16.9); Immature Granulocytes % 0.4 % (0-4); Lymphocytes # 1.9 K/mcL (0.6-4.6); Lymphocytes % 26.6 %; Mean Corpuscular HGB Conc 32.6 g/dL (31.6-35.5); Mean Corpuscular Hemoglobin 29.3 pg (28.0-33.3); Mean Corpuscular Volume 89.7 fL (83.0-100.0); Mean Platelet Volume 10.9 fL (9.4-12.4); Monocytes # 0.6 K/mcL (0.0-1.3); Monocytes % 8.8 %; Neutrophils # 4.1 K/mcL (1.6-8.9); Platelet Count 177 K/mcL (140-400); Red Blood Count 3.79 M/mcL (4.19-5.50); Red Cell Distribution Width 13.1 % (11.5-14.5); Segmented Neutrophils % 57.5 %; White Blood Count 7.2 K/mcL (4.3-11.1)
[2020-05-31 01:54] LABS: Estimated Average Glucose 174 mg/dl; Hemoglobin A1C 7.7 %
[2020-05-31 01:55] LABS: BUN/Creatinine Ratio 19 (6-26); Blood Urea Nitrogen 20 mg/dL (8-23); Calcium 9.1 mg/dL (8.6-10.3); Carbon Dioxide 25 mEq/L (23-29); Chloride 107 mEq/L (98-107); Glucose 87 mg/dL (70-105); Magnesium 2.1 mg/dL (1.6-2.6); Osmolality,Calculated 292 (280-300); Phosphorous 3.6 mg/dL (2.7-4.5); Potassium 3.8 mEq/L (3.5-5.1); Sodium 140 mEq/L (136-145); eGFR For African Americans > 60 (> 60); eGFR For Non-African Americans > 60 (> 60)
[2020-05-31] MEDS ORDERED: lisinopriL 10 MG TABLET PO SCH (09:00)
[2020-05-31] MEDS ORDERED: Aspirin Enteric Coated 81 MG Tablet PO SCH (09:00)
[2020-05-31] MEDS ORDERED: Cyanocobalamin (B-12) 1,000 MCG TABLET PO SCH (09:00)
[2020-05-31] MEDS ORDERED: amLODIPine 5 MG TABLET PO SCH (09:00)
[2020-05-31] MEDS ORDERED: carvediloL 6.25 MG TABLET PO SCH ×2 (09:00→17:00)
[2020-05-31] MEDS ORDERED: Furosemide 20 MG TABLET PO SCH (09:00)
[2020-05-31] MEDS: Insulin LISPRO 300 UNITS/3 ML VIAL SUBQ SCH ×4 (09:59→20:29)
[2020-06-01 01:01] LABS: Eosinophils % 6.1 %; Hematocrit 35.3 % (37.5-50.1); Hemoglobin 11.3 g/dL (12.9-16.9); Immature Granulocytes % 0.3 % (0-4); Lymphocytes % 29.4 %; Mean Corpuscular Hemoglobin 29.7 pg (28.0-33.3); Mean Corpuscular Volume 92.7 fL (83.0-100.0); Mean Platelet Volume 11.2 fL (9.4-12.4); Monocytes % 10.5 %; Platelet Count 191 K/mcL (140-400); Red Blood Count 3.81 M/mcL (4.19-5.50); Red Cell Distribution Width 13.1 % (11.5-14.5); Segmented Neutrophils % 52.9 %; White Blood Count 5.9 K/mcL (4.3-11.1)
[2020-06-01 01:02] LABS: Basophils # 0.1 K/mcL (0.0-0.2); Basophils % 0.8 %; Eosinophils # 0.4 K/mcL (0.0-0.6); Lymphocytes # 1.7 K/mcL (0.6-4.6); Monocytes # 0.6 K/mcL (0.0-1.3); Neutrophils # 3.1 K/mcL (1.6-8.9)
[2020-06-01 01:21] LABS: BUN/Creatinine Ratio 21 (6-26); Blood Urea Nitrogen 23 mg/dL (8-23); Calcium 9.2 mg/dL (8.6-10.3); Carbon Dioxide 26 mEq/L (23-29); Chloride 106 mEq/L (98-107); Glucose 141 mg/dL (70-105); Magnesium 2.2 mg/dL (1.6-2.6); Osmolality,Calculated 296 (280-300); Phosphorous 4.3 mg/dL (2.7-4.5); Potassium 4.2 mEq/L (3.5-5.1); Sodium 140 mEq/L (136-145); eGFR For African Americans > 60 (> 60); eGFR For Non-African Americans > 60 (> 60)
[2020-06-01 07:59] VITALS: BP 118/68
== END 2020-06-01 12:06 | disposition home or self-care (01) | DRG 315 ==
LOC: EMEROOARM 10:44 → 2ANU 10:44 → SUATTDRO 16:10 → 2ANU 16:58 → SUATTDRO 05-31 16:48
PROVIDERS: ADMIT Internal Medicine; ATTEND Family Medicine

== ENCOUNTER 2020-12-13 22:09 | Inpatient (IN) ==
[2020-12-14 02:48] LABS: Basophils # 0.1 K/mcL (0.0-0.2); Basophils % 0.3 %; Eosinophils % 0.1 %; Hematocrit 36.9 % (37.5-50.1); Immature Granulocytes % 0.5 % (0-4); Lymphocytes # 1.1 K/mcL (0.6-4.6); Lymphocytes % 7.5 %; Mean Corpuscular HGB Conc 32.5 g/dL (31.6-35.5); Mean Corpuscular Hemoglobin 29.6 pg (28.0-33.3); Mean Corpuscular Volume 91.1 fL (83.0-100.0); Mean Platelet Volume 11.1 fL (9.4-12.4); Monocytes # 1.9 K/mcL (0.0-1.3); Monocytes % 13.1 %; Neutrophils # 11.5 K/mcL (1.6-8.9); Platelet Count 186 K/mcL (140-400); Red Blood Count 4.05 M/mcL (4.19-5.50); Red Cell Distribution Width 12.8 % (11.5-14.5); Segmented Neutrophils % 78.5 %; White Blood Count 14.6 K/mcL (4.3-11.1)
[2020-12-14] MEDS ORDERED: Ondansetron 4 MG/2 ML VIAL IVP ONE (03:02)
[2020-12-14 03:07] LABS: Alanine Aminotransferase 15 Units/L (7-52); Albumin 3.9 g/dL (3.5-5.7); Albumin/Globulin Ratio 1.6 (1.1-2.2); Aspartate Amino Transferase 10 Units/L (13-39); BUN/Creatinine Ratio 13 (6-26); Bilirubin,Direct 0.4 mg/dL (0.0-0.2); Bilirubin,Indirect 1.5 mg/dL (0.0-1.0); Bilirubin,Total 1.9 mg/dL (0.3-1.0); Blood Urea Nitrogen 15 mg/dL (8-23); Carbon Dioxide 22 mEq/L (23-29); Chloride 103 mEq/L (98-107); Globulin 2.4 g/dL (2.4-3.5); Glucose 203 mg/dL (70-105); Osmolality,Calculated 291 (280-300); Potassium 4.3 mEq/L (3.5-5.1); Sodium 137 mEq/L (136-145); Total Protein 6.3 g/dL (6.4-8.9); eGFR For African Americans > 60 (> 60); eGFR For Non-African Americans > 60 (> 60)
[2020-12-14 03:31] LABS: Troponin I 0.03 ng/mL (< 0.04)
[2020-12-14 03:39] LABS: Alkaline Phosphatase 64 Units/L (34-104)
[2020-12-14 04:08] LABS: Bacteria,Urine Few per hpf (None-Few); Bilirubin,Urine Negative (Negative); Blood,Urine Negative (Negative); Clarity,Urine Clear (Clear); Color,Urine Yellow (Yellow); Glucose,Urine (UA) >=1000 mg/dL (Normal); Hyaline Casts,Urine Few per lpf (None Seen); Ketones,Urine Trace mg/dL (Negative); Leukocyte Esterase,Urine Negative (Negative); Mucus,Urine Few per lpf (None-Few); Nitrite,Urine Negative (Negative); PH,Urine 5.5 pH Units (5.0-8.0); Protein,Urine 100 mg/dL (Neg-Trace); RBC,Urine 0-3 per hpf (0-3); Specific Gravity,Urine > 1.030 (1.010-1.025); Squamous Epithelial Cell,Urine Few per hpf (None-Few); Urobilinogen,Urine Normal (Normal)
[2020-12-14] MEDS ORDERED: Isovue-370 500 ML BOTTLE IVP ONE (04:26)
[2020-12-14] MEDS ORDERED: Piperacillin/Tazobactam 3.375 GM in 0.9 % Sodium Chloride Mini Bag 100 ML IVPB ONE (06:47)
[2020-12-14] MEDS ORDERED: 0.9 % Sodium Chloride 1,000 ML IVC SCH ×3 (07:30→15:42)
[2020-12-14] MEDS ORDERED: *HR* HYDROcodone/Acet 5/325 mg TABLET PO PRN (08:25)
[2020-12-14] MEDS ORDERED: D5% in Water 1,000 ML IVC PRN ×2 (08:25→15:42)
[2020-12-14] MEDS ORDERED: Dextrose Gel 15 GM/37.5 ML TUBE PO PRN ×4 (08:25→15:42)
[2020-12-14] MEDS ORDERED: Ondansetron 4 MG/2 ML VIAL IVP PRN ×3 (08:25→15:42)
[2020-12-14] MEDS ORDERED: *HR* OxyCODONE Immed Rel 5 MG TABLET PO PRN (08:25)
[2020-12-14] MEDS ORDERED: Naloxone 0.4 MG/ML INJ IVP PRN ×2 (08:25→15:42)
[2020-12-14] MEDS ORDERED: *HR* Dextrose 50 % in Water (Vial) 50 ML VIAL IVP PRN ×2 (08:25→15:42)
[2020-12-14] MEDS ORDERED: Acetaminophen 325 MG TABLET PO PRN (08:25)
[2020-12-14] MEDS ORDERED: *HR* Rocuronium Bromide 50 MG/5 ML VIAL ONE (11:09)
[2020-12-14] MEDS ORDERED: Ondansetron 4 MG/2 ML VIAL ONE (11:09)
[2020-12-14] MEDS ORDERED: Lidocaine -MPF 2% 2 ML VIAL ONE (11:09)
[2020-12-14] MEDS ORDERED: *HR* Succinylcholine 200 MG/10 ML VIAL IVP ONE (11:09)
[2020-12-14] MEDS ORDERED: *HR* FentaNYL (PF) 100 MCG/2 ML VIAL ONE ×2 (11:09→13:21)
[2020-12-14] MEDS ORDERED: Lidocaine HCL 4 ML Topical Solution (Laryng-O-Jet Kit Sterile Pak) TP ONE (11:09)
[2020-12-14] MEDS ORDERED: *HR* Propofol 200 MG/20 ML VIAL IVP ONE (11:10)
[2020-12-14] MEDS ORDERED: *HR* Midazolam HCl 2 MG/2 ML VIAL ONE (11:10)
[2020-12-14] MEDS ORDERED: Insulin LISPRO 300 UNITS/3 ML VIAL SUBQ SCH (12:00)
[2020-12-14] MEDS ORDERED: *HR* Meperidine 25 MG/ML SYRINGE IVP PRN (12:27)
[2020-12-14] MEDS ORDERED: *HR* HYDROmorphone PF 0.5 MG/0.5 ML SYRINGE IVP PRN (12:27)
[2020-12-14] MEDS ORDERED: Albuterol 2.5 MG/3 ML NEBULIZER IH PRN ×2 (12:27→15:42)
[2020-12-14] MEDS ORDERED: Sugammadex Sodium 200 MG/2 ML VIAL IV ONE (14:00)
[2020-12-14] MEDS ORDERED: Piperacillin/Tazobactam 3.375 GM in 0.9 % Sodium Chloride Mini Bag 100 ML IVPB SCH (16:00)
[2020-12-14] MEDS: Furosemide 20 MG TABLET PO SCH (16:31)
[2020-12-14] MEDS: carvediloL 6.25 MG TABLET PO SCH (16:31)
[2020-12-14] MEDS: Piperacillin/Tazobactam 3.375 GM in 0.9 % Sodium Chloride Mini Bag 100 ML IVPB SCH ×2 (16:31→23:53)
[2020-12-14] MEDS: Ketorolac 15 MG/ML VIAL IVP SCH ×2 (17:56→23:53)
[2020-12-14] MEDS: Insulin LISPRO 300 UNITS/3 ML VIAL SUBQ SCH ×2 (17:57→23:54)
[2020-12-15] MEDS: Ketorolac 15 MG/ML VIAL IVP SCH ×5 (05:30→23:26)
[2020-12-15] MEDS: Insulin LISPRO 300 UNITS/3 ML VIAL SUBQ SCH ×4 (05:30→23:27)
[2020-12-15] MEDS ORDERED: Acetaminophen IV 1,000 MG/100 ML BAG IVPB ONE (06:24)
[2020-12-15 07:37] LABS: Basophils % 0.2 %; Hematocrit 33.2 % (37.5-50.1); Hemoglobin 10.8 g/dL (12.9-16.9); Immature Granulocytes % 0.5 % (0-4); Lymphocytes # 0.6 K/mcL (0.6-4.6); Lymphocytes % 6.8 %; Mean Corpuscular HGB Conc 32.5 g/dL (31.6-35.5); Mean Corpuscular Hemoglobin 29.3 pg (28.0-33.3); Mean Platelet Volume 11.4 fL (9.4-12.4); Monocytes % 10.9 %; Neutrophils # 7.7 K/mcL (1.6-8.9); Platelet Count 148 K/mcL (140-400); Red Blood Count 3.69 M/mcL (4.19-5.50); Red Cell Distribution Width 12.9 % (11.5-14.5); Segmented Neutrophils % 81.6 %; White Blood Count 9.5 K/mcL (4.3-11.1)
[2020-12-15 07:59] LABS: Albumin 3.5 g/dL (3.5-5.7); Albumin/Globulin Ratio 1.5 (1.1-2.2); Bilirubin,Direct 0.6 mg/dL (0.0-0.2); Bilirubin,Indirect 1.5 mg/dL (0.0-1.0); Bilirubin,Total 2.1 mg/dL (0.3-1.0); Globulin 2.3 g/dL (2.4-3.5); Total Protein 5.8 g/dL (6.4-8.9)
[2020-12-15] MEDS: Piperacillin/Tazobactam 3.375 GM in 0.9 % Sodium Chloride Mini Bag 100 ML IVPB SCH ×3 (07:59→23:26)
[2020-12-15 08:00] LABS: Calcium 8.2 mg/dL (8.6-10.3); Potassium 4.2 mEq/L (3.5-5.1)
[2020-12-15] MEDS: carvediloL 6.25 MG TABLET PO SCH ×2 (08:00→17:06)
[2020-12-15] MEDS: Furosemide 20 MG TABLET PO SCH (08:01)
[2020-12-15] MEDS ORDERED: *HR* Glimepiride 4 MG TABLET PO SCH (09:00)
[2020-12-15] MEDS ORDERED: lisinopriL 10 MG TABLET PO SCH (09:00)
[2020-12-15] MEDS ORDERED: 0.9 % Sodium Chloride 1,000 ML IVC SCH ×2 (10:15→15:23)
[2020-12-15] MEDS ORDERED: Lidocaine -MPF 2% 5 ML VIAL ONE (10:56)
[2020-12-15] MEDS ORDERED: Ondansetron 4 MG/2 ML VIAL ONE (10:56)
[2020-12-15] MEDS ORDERED: *HR* Propofol 200 MG/20 ML VIAL IVP ONE (10:56)
[2020-12-15] MEDS ORDERED: *HR* FentaNYL (PF) 100 MCG/2 ML VIAL ONE ×2 (10:56→14:08)
[2020-12-15] MEDS ORDERED: *HR* Succinylcholine 200 MG/10 ML VIAL IVP ONE (10:57)
[2020-12-15] MEDS ORDERED: *HR* FentaNYL (PF) 100 MCG/2 ML VIAL IVP PRN (13:09)
[2020-12-15] MEDS ORDERED: Ondansetron 4 MG/2 ML VIAL IVP PRN (13:09)
[2020-12-15 17:13] LABS: Calcium 8.3 mg/dL (8.6-10.3); Potassium 4.1 mEq/L (3.5-5.1)
[2020-12-16 05:29] LABS: Hematocrit 32.6 % (37.5-50.1); Hemoglobin 10.2 g/dL (12.9-16.9); Mean Corpuscular HGB Conc 31.3 g/dL (31.6-35.5); Mean Corpuscular Hemoglobin 29.2 pg (28.0-33.3); Mean Corpuscular Volume 93.4 fL (83.0-100.0); Mean Platelet Volume 11.6 fL (9.4-12.4); Platelet Count 181 K/mcL (140-400); Red Blood Count 3.49 M/mcL (4.19-5.50); Red Cell Distribution Width 13.1 % (11.5-14.5); White Blood Count 9.8 K/mcL (4.3-11.1)
[2020-12-16 05:49] LABS: Albumin 3.3 g/dL (3.5-5.7); Albumin/Globulin Ratio 1.2 (1.1-2.2); Bilirubin,Total 1.2 mg/dL (0.3-1.0); Calcium 8.1 mg/dL (8.6-10.3); Globulin 2.8 g/dL (2.4-3.5); Potassium 4.2 mEq/L (3.5-5.1); Total Protein 6.1 g/dL (6.4-8.9)
[2020-12-16 05:50] LABS: Magnesium 2.1 mg/dL (1.6-2.6); Phosphorous 3.2 mg/dL (2.7-4.5)
[2020-12-16] MEDS: Ketorolac 15 MG/ML VIAL IVP SCH ×2 (05:50→12:40)
[2020-12-16] MEDS: Insulin LISPRO 300 UNITS/3 ML VIAL SUBQ SCH ×4 (05:51→16:59)
[2020-12-16] MEDS: carvediloL 6.25 MG TABLET PO SCH ×2 (08:44→16:58)
[2020-12-16] MEDS: Piperacillin/Tazobactam 3.375 GM in 0.9 % Sodium Chloride Mini Bag 100 ML IVPB SCH ×2 (08:45→14:51)
[2020-12-16] MEDS ORDERED: 0.9 % Sodium Chloride 1,000 ML IVC SCH (14:45)
[2020-12-16 19:35] LABS: Uric Acid 4.1 mg/dL (2.3-7.6)
[2020-12-16 21:48] LABS: Sodium, Urine 33.3 mEq/L
[2020-12-16 22:06] LABS: Amorphous Sediment,Urine Few per hpf (None-Few); Bilirubin,Urine Negative (Negative); Blood,Urine Moderate (Negative); Clarity,Urine Turbid (Clear); Color,Urine Yellow (Yellow); Glucose,Urine (UA) Normal (Normal); Ketones,Urine Negative (Negative); Leukocyte Esterase,Urine Negative (Negative); Mucus,Urine Few per lpf (None-Few); Nitrite,Urine Negative (Negative); Protein,Urine 100 mg/dL (Neg-Trace); RBC,Urine 0-3 per hpf (0-3); Specific Gravity,Urine 1.016 (1.010-1.025); Urobilinogen,Urine Normal (Normal)
[2020-12-17] MEDS: Piperacillin/Tazobactam 3.375 GM in 0.9 % Sodium Chloride Mini Bag 100 ML IVPB SCH ×3 (00:20→16:12)
[2020-12-17] MEDS: *HR* OxyCODONE Immed Rel 5 MG TABLET PO PRN ×2 (00:23→20:06)
[2020-12-17 03:29] LABS: Albumin 3.1 g/dL (3.5-5.7); Albumin/Globulin Ratio 1.2 (1.1-2.2); Bilirubin,Total 0.8 mg/dL (0.3-1.0); Globulin 2.5 g/dL (2.4-3.5); Magnesium 2.2 mg/dL (1.6-2.6); Phosphorous 2.1 mg/dL (2.7-4.5); Potassium 4.2 mEq/L (3.5-5.1); Total Protein 5.6 g/dL (6.4-8.9)
[2020-12-17] MEDS: carvediloL 6.25 MG TABLET PO SCH ×2 (08:59→16:26)
[2020-12-17] MEDS: Insulin LISPRO 300 UNITS/3 ML VIAL SUBQ SCH ×3 (09:04→16:27)
[2020-12-18] MEDS: Piperacillin/Tazobactam 3.375 GM in 0.9 % Sodium Chloride Mini Bag 100 ML IVPB SCH ×2 (00:56→08:10)
[2020-12-18 05:11] LABS: Calcium 8.5 mg/dL (8.6-10.3); Potassium 4.1 mEq/L (3.5-5.1)
[2020-12-18] MEDS: carvediloL 6.25 MG TABLET PO SCH ×2 (08:03→17:14)
[2020-12-18] MEDS: Insulin LISPRO 300 UNITS/3 ML VIAL SUBQ SCH ×3 (08:06→17:15)
[2020-12-18] MEDS: Sennosides/Docusate Sodium TABLET PO SCH (14:52)
[2020-12-18] MEDS: *HR* OxyCODONE Immed Rel 5 MG TABLET PO PRN (20:12)
[2020-12-19 04:20] LABS: Calcium 8.7 mg/dL (8.6-10.3)
[2020-12-19] MEDS ORDERED: 0.9 % Sodium Chloride 1,000 ML IVC SCH (07:15)
[2020-12-19] MEDS: Sennosides/Docusate Sodium TABLET PO SCH (08:38)
[2020-12-19] MEDS: carvediloL 6.25 MG TABLET PO SCH ×2 (08:39→18:12)
[2020-12-19] MEDS: Insulin LISPRO 300 UNITS/3 ML VIAL SUBQ SCH ×3 (08:41→18:12)
[2020-12-19] MEDS: polyethylene glycoL 3350 17 GM POWD.PACK PO SCH (14:00)
[2020-12-19 15:54] LABS: Hematocrit 31.4 % (37.5-50.1); Hemoglobin 10.1 g/dL (12.9-16.9); Mean Corpuscular HGB Conc 32.2 g/dL (31.6-35.5); Mean Corpuscular Hemoglobin 29.5 pg (28.0-33.3); Mean Corpuscular Volume 91.8 fL (83.0-100.0); Mean Platelet Volume 11.1 fL (9.4-12.4); Platelet Count 270 K/mcL (140-400); Red Blood Count 3.42 M/mcL (4.19-5.50); Red Cell Distribution Width 13.8 % (11.5-14.5); White Blood Count 7.4 K/mcL (4.3-11.1)
[2020-12-19 15:59] LABS: Albumin 3.1 g/dL (3.5-5.7); Albumin/Globulin Ratio 1.2 (1.1-2.2); Bilirubin,Direct 0.2 mg/dL (0.0-0.2); Bilirubin,Indirect 0.4 mg/dL (0.0-1.0); Bilirubin,Total 0.6 mg/dL (0.3-1.0); Globulin 2.6 g/dL (2.4-3.5); Total Protein 5.7 g/dL (6.4-8.9)
[2020-12-19] MEDS ORDERED: Insulin LISPRO 300 UNITS/3 ML VIAL SUBQ SCH (21:00)
[2020-12-20 06:25] LABS: Hematocrit 34.7 % (37.5-50.1); Hemoglobin 10.9 g/dL (12.9-16.9); Mean Corpuscular HGB Conc 31.4 g/dL (31.6-35.5); Mean Corpuscular Hemoglobin 28.8 pg (28.0-33.3); Mean Corpuscular Volume 91.8 fL (83.0-100.0); Mean Platelet Volume 10.8 fL (9.4-12.4); Platelet Count 300 K/mcL (140-400); Red Blood Count 3.78 M/mcL (4.19-5.50); Red Cell Distribution Width 13.7 % (11.5-14.5); White Blood Count 7.3 K/mcL (4.3-11.1)
[2020-12-20 06:46] LABS: Albumin 3.4 g/dL (3.5-5.7); Albumin/Globulin Ratio 1.2 (1.1-2.2); Bilirubin,Direct 0.1 mg/dL (0.0-0.2); Bilirubin,Indirect 0.5 mg/dL (0.0-1.0); Bilirubin,Total 0.6 mg/dL (0.3-1.0); Globulin 2.8 g/dL (2.4-3.5); Total Protein 6.2 g/dL (6.4-8.9)
[2020-12-20] MEDS: polyethylene glycoL 3350 17 GM POWD.PACK PO SCH (08:21)
[2020-12-20] MEDS: carvediloL 6.25 MG TABLET PO SCH (08:21)
[2020-12-20] MEDS: Sennosides/Docusate Sodium TABLET PO SCH (08:21)
[2020-12-20] MEDS: Insulin LISPRO 300 UNITS/3 ML VIAL SUBQ SCH ×2 (08:23→11:50)
[2020-12-20 10:29] VITALS: BP 157/81; PULSE 77; TEMP 98.2; O2SAT 95
[2020-12-20] MEDS ORDERED: Lactulose Oral Soln 20 GM/30 ML UDC PO ONE (11:39)
[2020-12-20] MEDS ORDERED: Simethicone 80 MG TAB.CHEW PO PRN (11:46)
[2020-12-20] MEDS ORDERED: Tetrahydrozoline 15 ML BOTTLE LEFT EYE PRN (12:04)
== END 2020-12-20 14:41 | disposition home or self-care (01) | DRG 854 ==
LOC: EMEROOARM 22:09 → 3BNU 22:09 → SUATTDRO 12-14 08:41 → 3BNU 12-14 09:43 → SUATTDRO 12-15 14:45
PROVIDERS: ADMIT Internal Medicine; ATTEND Nurse Practitioner